=== PATIENT | female | born 2000 ===

== ENCOUNTER 2023-08-03 09:05 | Emergency (ER) | payer SELFPAY ==
[2023-08-03 09:18] VITALS: BP 151/92; PULSE 93; RESP 16; TEMP 36.8; O2SAT 100
[2023-08-03 09:54] LABS: Strep Group A RT-PCR NOT DETECTED (Negative)
--- NOTE | 2023-08-03 10:25 | PC.NURSE ---
Second call for room placement. Pt not in waiting room or outside.
== END 2023-08-03 10:25 | disposition left against medical advice (07) ==
PROVIDERS: Emergency Provider Emergency Medicine
DX: J35.1 Hypertrophy of tonsils (principal)
CPT/HCPCS: 87651; 99199